=== PATIENT | female | born 1985 | race Caucasian/White ===

== ENCOUNTER → 2017-02-21 | Outpatient (CLI) | payer OTHER | LOC: FIMAGING 15:35 | PROVIDERS: ATTEND Advanced Practice Midwife | DX: N63 Unspecified lump in breast (principal); Z3A.00 Weeks of gestation of pregnancy not specified ==

== ENCOUNTER → 2017-03-18 | Outpatient (CLI) | payer OTHER | LOC: FIMAGING 07:26 | PROVIDERS: ATTEND Advanced Practice Midwife | DX: Z36 Encounter for antenatal screening of mother (principal); Z3A.22 22 weeks gestation of pregnancy; O35.8XX0 Maternal care for other (suspected) fetal abnormality and damage, not applicable or unspecified ==

== ENCOUNTER → 2017-04-11 | Outpatient (CLI) | payer OTHER | LOC: FIMAGING 13:58 | PROVIDERS: ATTEND Advanced Practice Midwife | DX: Z34.02 Encounter for supervision of normal first pregnancy, second trimester (principal); Z3A.26 26 weeks gestation of pregnancy ==

== ENCOUNTER → 2017-04-22 | Outpatient (CLI) | payer OTHER | LOC: CIMAGING 13:46 | PROVIDERS: ATTEND Advanced Practice Midwife | DX: Z12.39 Encounter for other screening for malignant neoplasm of breast (principal); N63 Unspecified lump in breast | CPT/HCPCS: 76641-PO ==

== ENCOUNTER → 2017-05-23 | Outpatient (CLI) | payer OTHER | LOC: FIMAGING 12:23 | PROVIDERS: ATTEND Advanced Practice Midwife | DX: Z36.3 Encounter for antenatal screening for malformations (principal); Z3A.32 32 weeks gestation of pregnancy ==

== ENCOUNTER → 2017-06-12 | Outpatient (CLI) | payer OTHER ==
[~2017-06-12] MED LIST: BUPIVACAINE 0.5% 10 ML SDV ONE; LIDOCAINE 1% 300 MG/30 ML SDV ONE
== END ==
LOC: FIMAGING 07:15
PROVIDERS: ATTEND Advanced Practice Midwife
PROC: 0HBT3ZX Excision of Right Breast, Percutaneous Approach, Diagnostic (ICD-10-PCS; principal; 2017-06-12)
DX: D24.1 Benign neoplasm of right breast (principal)

== ENCOUNTER 2017-07-16 13:40 | Observation (INO) | payer OTHER ==
[2017-07-16] MEDS ORDERED: CEFAZOLIN 2 GM/DEXTROSE/100 ML BAG IV ONE (14:09)
[2017-07-16 14:17] LABS: % IMMATURE GRANULYOCYTES 0.9 % (0.0-1.1); ABSOLUTE IMMATURE GRANULOCYTES 0.23 10^3/uL (0.00-0.10); ADD DIFF? NO; ADD MORPH? NO; ADD SCAN? NO; ATYPICAL LYMPHOCYTE FLAG 0 (0-99); FRAGMENT RBC FLAG 0 (0-99); HEMATOCRIT 33.9 % (38.0-47.0); HEMOGLOBIN 12.2 g/dL (12.6-16.3); LEFT SHIFT FLG 20 (0-99); LIPEMIA HEMOLYSIS FLAG 90 (0-99); MEAN CELL HEMOGLOBIN 31.5 pg (27.9-34.1); MEAN CELL VOLUME 87.6 fL (81.5-99.8); MEAN PLATELET VOLUME 10.9 fL (8.7-11.7); PLATELET CLUMPS FLAG 0 (0-99); PLATELET COUNT 248 10^3/uL (150-400); RED BLOOD CELL COUNT 3.87 10^6/uL (4.18-5.33); RED CELL DISTRIBUTION WIDTH 12.5 % (11.5-15.2)
[2017-07-16] MEDS ORDERED: fentaNYL 100 MCG/2 ML INJ ONE (14:30)
[2017-07-16] MEDS ORDERED: PROPOFOL 200 MG/20 ML VIAL ONE (14:49)
[2017-07-16] MEDS ORDERED: MISOPROSTOL 200 MCG TAB ONE (14:52)
--- NOTE | 2017-07-16 17:08 | PDANEPAE ---
ANE History of Present Illness Retained placenta and vaginal laceration. ANE Past Medical History - Cardiovascular History Hx Hypertension: No Hx Arrhythmias: No Hx Chest Pain: No Hx Coronary Artery / Peripheral Vascular Disease: No Hx CHF / Valvular Disease: No Hx Palpitations: No - Pulmonary History Hx COPD: No Hx Asthma/Reactive Airway Disease: No Hx Recent Upper Respiratory Infection: No Hx Oxygen in Use at Home: No Hx Sleep Apnea: No Sleep Apnea Screening Result - Last Documented: Negative - Surgical History Prior Surgeries: Prior general anesthesia and spinal tap with [facility]. ANE Review of Systems Review of Systems: ANE Patient History - Allergies Allergies/Adverse Reactions: No Known Allergies Allergy (Unverified 07/16/17 17:08) - NPO status NPO Status: no food or drink >8 hours - Anes Hx Anes Hx: no prior problems - Smoking Hx Smoking Status: Never smoked Marijuana use: No - Alcohol Use Alcohol Use: None - Family Anes Hx Family Anes Hx: neg - N/A ANE Labs/Vital Signs - Labs Result Diagrams: 07/16/17 14:08 - Vital Signs Blood Pressure: 96/51 Heart Rate: 110 Respiratory Rate: 16 O2 Sat (%): 97 Height: 170.18 cm Weight: 72.575 kg ANE Physical Exam - Airway Neck exam: FROM Mallampati Score: Class 2 Mouth exam: normal dental/mouth exam - Pulmonary Pulmonary: no respiratory distress - Cardiovascular Cardiovascular: regular rate and rhythym - ASA Status ASA Status: I ANE Anesthesia Plan Anesthesia Plan: spinal Urgent/Emergent Case: Deepa pablo completed preop but documented later for safe timely pt care
[2017-07-16] MEDS ORDERED: PHENYLEPHRINE HCL 100 MCG/ML SYR IVP PRN (17:15)
[2017-07-16] MEDS ORDERED: HYDROCODONE/APAP 5/325 TAB PO PRN (17:15)
[2017-07-16] MEDS ORDERED: NALOXONE HCL 0.4 MG/ML INJ IVP PRN (17:15)
[2017-07-16] MEDS ORDERED: ONDANSETRON 4 MG/2 ML VIAL IVP PRN (17:15)
--- NOTE | 2017-07-16 17:15 | POSTANESTH ---
Post Anesthetic Evaluation Cardiovascular Status: Normal, Stable, Similar to Pre-Op Cond Respiratory Status: Normal, Stable, Similar to Pre-op Cond. Level of Consciousness/Mental Status: Can Participate in Eval, Alert and Oriented Pain Control: Adequate, Prn Tx Ordered Nausea/Vomiting Control: Adequate, Prn Tx Ordered Complications Possibly Related to Anesthesia: None Noted
[2017-07-16 19:43] LABS: HEMATOCRIT 25.6 % (38.0-47.0); HEMOGLOBIN 9.5 g/dL (12.6-16.3)
[2017-07-16] MEDS ORDERED: KETOROLAC 30 MG/1 ML SDV IVP ONE (19:54)
[2017-07-16] MEDS ORDERED: LR 1,000 ML IV ONE (23:26)
--- NOTE | 2017-07-16 23:42 | POSTOPPROG ---
Post Op Note Date of Operation: 07/16/17 Surgeon: Nicole Castanon Anesthesiologist: Jameel Mclain MD Anesthesia: Spinal Pre-op Diagnosis: retained placenta, s/p out of hospital delivery, PP hemorrhage Post-op Diagnosis: same Indication: tx from Center, retained placenta approx 1 1/2 hrs prior, EBL 400 Procedure: manual extraction of placenta and sharp currettage under u/s quidance Findings: placenta half extruding however still fully applied in uterus. Still fragm Inf/Abcess present in the surg proc area at time of surgery?: No Depth: Organ Space EBL: 100-500 (400cc additional procedural EBL)
[2017-07-16] MEDS ORDERED: ceFAZolin 2 GM/DEXTROSE 100 ML IV ONE (23:45)
[2017-07-16 23:57] VITALS: O2SAT 97
--- NOTE | 2017-07-17 00:07 | OBPP ---
Progress Note Assessment/Plan: Assessment: s/p PP manual extraction of placenta and DNC anemia Plan: obs overnight, light headed with amb 07/17/17 00:03 Subjective/ Course: 07/17/17 00:05 Pt has been doing fine since DNC. spinal anesth wore off and pt had been thinking of d/c but when getting up to void, felt a bit shaky and wanted to stay here overnight. Has been BF well. urinated fine. Objective: 07/16/17 19:36 Patient ABO/Rh O POSITIVE 07/16/17 14:08 Temp Pulse Resp BP Pulse Ox 36.8 C 100 16 83/53 L 97 07/16/17 23:54 07/16/17 23:54 07/16/17 23:54 07/16/17 23:54 07/16/17 23:54 Uterine Position/Fundal Height: Umbilicus -1 Uterine Tone: Firm
--- NOTE | 2017-07-17 01:29 | GHP ---
[f rep st] PREOP HISTORY AND PHYSICAL DATE OF ADMISSION: 07/16/2017 HISTORY UPON ADMISSION: The patient is a 32-year-old G1, P1, status post a vaginal delivery at the center at approximately 12:26 spontaneously, but presents via ambulance to Labor and Delivery for a retained placenta. The patient arrived at approximately 1:45. The patient had stable vital signs upon arrival but was extremely uncomfortable. Brief report from Ilene, the nurse svp research [employer] operations who came with the patient, she had an uncomplicated vaginal delivery. She reported approximately 300-400 cc of estimated blood loss with a partial expulsion of a small portion of the placenta. However, then retained tissue at the introitus. The patient was getting more uncomfortable with cramping. The patient had received 50 cc of fentanyl x2 on transport to the hospital from the EMT. Upon initial inspection, the patient was having a mild amount of bleeding with the placenta at the introitus, but patient was stable. With minimal manipulation of the abdomen, the patient was unwilling to proceed without deeper anesthesia. Options were given to the patient to proceed to the operating room with anesthesiologist, Dr. Mclain, to get her more comfortable. The patient declined having any manipulation or evaluation before deeper anesthesia. PAST MEDICAL HISTORY: Patient with abnormal Pap smear requiring a LEEP in 2004. History of a kidney stone in 2010. History of depression in 2003. PAST SURGICAL HISTORY: The LEEP procedure. PAST OBSTETRIC HISTORY: care with the center with normal lab values. Maternal blood type O positive and negative antibody screen. The patient did have a history of positive GBS and did have 2 doses of antibiotics during the labor course. Her last 1 g of ampicillin was given at approximately 10:30 a.m. ALLERGIES: Patient has no known drug allergies, but does report celiac disease. CURRENT MEDICATIONS: vitamins. SOCIAL HISTORY: The patient is and here with her partner, Adria, and new baby boy. The patient is a nonsmoker, denies any current drug use. However , in her past admits to marijuana, cocaine, LSD, ecstasy, but rarely. PHYSICAL EXAMINATION: GENERAL: Upon admission, the patient was afebrile. VITAL SIGNS: In the 90s over 50s and the pulse was in the 100s. The patient was visibly very uncomfortable with abdominal cramping. See nursing documentation for full vital sign report. ABDOMEN: Soft with episodes of contractions noted. PELVIC: The placenta was extruding from the introitus. No additional exam was done prior to going to the operating room with anesthetic. EXTREMITIES: Nontender. No edema. ASSESSMENT: retained placenta status post vaginal delivery at the center. PLAN: The patient was consented to proceed with manual extraction of the placenta and D and C if necessary to remove any tissue under ultrasound guidance. The patient is to be evaluated by Dr. Mclain and receive anesthesia before the procedure. The patient understands the increased risk of needing a transfusion due to potential uterine atony as the placenta has been retained for greater than an hour and a half. /[id number]/MODL MTDD
[2017-07-17] MEDS: IBUPROFEN 600 MG TAB PO PRN ×2 (02:02→09:09)
[2017-07-17] MEDS ORDERED: IRON POLYSAC/IRON HEME 28 MG TAB PO SCH (09:00)
--- NOTE | 2017-07-17 09:06 | OBPP ---
Progress Note Assessment/Plan: Assessment: ppd / pod# 1 s/p at center and d and c for retained placenta and post hemorrhage anemia - stable Plan: routine post care iron discharge instructions 07/17/17 09:03 Subjective/ Course: 07/17/17 00:05 Pt has been doing fine since DNC. spinal anesth wore off and pt had been thinking of d/c but when getting up to void, felt a bit shaky and wanted to stay here overnight. Has been BF well. urinated fine. 07/17/17 09:04 patient is doing well. pain is well controlled. ambulating. gets slightly lightheaded with standing but is ok if moves slowly. normal lochia. breast feeding is going well. denies headache and changes in vision. ready to go home. Objective: 07/17/17 06:56 Patient ABO/Rh O POSITIVE 07/16/17 14:08 Temp Pulse Resp BP Pulse Ox 36.8 C 100 16 83/53 L 97 07/16/17 23:54 07/16/17 23:54 07/16/17 23:54 07/16/17 23:54 07/16/17 23:54 Uterine Position/Fundal Height: Umbilicus -2 Uterine Tone: Firm Physical Exam - Physical Exam Neck: non-tender, full range of motion, supple Respiratory: chest non-tender, lungs clear, normal breath sounds Cardiac/Chest: normal peripheral pulses, regular rate, rhythm Abdomen: normal bowel sounds, non-tender Extremities: normal range of motion, non-tender, normal inspection, normal capillary refill Skin: normal color, warm/dry Neuro/Psych: no motor/sensory deficits, alert, normal mood/affect, oriented x 3
[2017-07-17 10:21] VITALS: BP 98/55; PULSE 95; RESP 20; TEMP 98.6
== END 2017-07-17 10:30 | disposition home or self-care (01) ==
LOC: FOBOP 13:40 → FLD 17:26
PROVIDERS: ADMIT Obstetrics & Gynecology; ATTEND Obstetrics & Gynecology
PROC: 10D17ZZ Extraction of Products of Conception, Retained, Via Natural or Artificial Opening (ICD-10-PCS; principal; 2017-07-16)
DX: O72.0 Third-stage hemorrhage (principal); Z87.442 Personal history of urinary calculi
CPT/HCPCS: 59160; G0378; J0690; J1885; J2704; J3010